=== PATIENT | female | born 2000 | race Caucasian/White ===

== ENCOUNTER 2022-03-16 22:10 | Emergency (ER) | payer OTHER, SELFPAY ==
[~2022-03-16] VITALS: Ht 162.6 cm; Wt 41.0 kg
[2022-03-16 22:12] VITALS: BP 114/75
[2022-03-16] MEDS ORDERED: ACETAMINOPHEN TAB 650MG DOSE (2X325MG) PO ONE (22:40)
== END 2022-03-17 02:20 | disposition home or self-care (01) ==
LOC: M ED 22:10
DX: U07.1 COVID-19 (principal); F17.200 Nicotine dependence, unspecified, uncomplicated; Z91.040 Latex allergy status